=== PATIENT | male | born 1935 | race Caucasian/White ===

== ENCOUNTER 2019-05-16 02:05 | Outpatient (CLI) | payer MEDICARE, OTHER | END 2019-05-16 02:06 | disposition short-term general hospital (02) | LOC: EMS 02:05 | PROVIDERS: ATTEND Surgery | DX: R07.9 Chest pain, unspecified (principal); R42 Dizziness and giddiness; R61 Generalized hyperhidrosis | CPT/HCPCS: A0425; A0427 ==

== ENCOUNTER 2020-11-02 22:22 | Outpatient (CLI) | payer MEDICARE, OTHER | END 2020-11-02 22:23 | disposition critical access hospital (66) | LOC: EMS 22:22 | DX: S09.90XA Unspecified injury of head, initial encounter (principal); X58.XXXA Exposure to other specified factors, initial encounter; Y93.E5 Activity, floor mopping and cleaning; Y92.009 Unspecified place in unspecified non-institutional (private) residence as the place of occurrence of the external cause | CPT/HCPCS: A0425; A0429 ==

== ENCOUNTER 2020-11-02 22:44 | Emergency (ER) | payer MEDICARE, OTHER ==
--- NOTE | 2020-11-02 22:52 | ED Physician Documentation ---
PD HPI HEAD INJURY - Stated complaint Stated Complaint: GLF/ HEAD INJ - Chief complaint Chief Complaint: Trauma Hd/Nk - History obtained from History obtained from: Patient - History of Present Illness Mechanism of head injury: Fell (he says he slipped on wet floor and fell backward. No LOC. No prior symptoms.) Where head injury occurred: Home Timing - onset: Today Location of injury: Back Quality of pain: Aching Associated symptoms: No: LOC, AMS, Nausea / vomiting Symptoms worsen with: Palpation Contributing factors: No: Anticoagulated, Intoxicated Similar symptoms before: Has not had sx before Recently seen: Not recently seen Review of Systems Constitutional: denies: Fever, Chills Nose: denies: Rhinorrhea / runny nose, Congestion Throat: denies: Sore throat Cardiac: denies: Chest pain / pressure Respiratory: denies: Cough GI: denies: Abdominal Pain Skin: denies: Abrasion (s), Laceration (s) Neurologic: reports: Focal weakness (mild in legs related to MS chronically). denies: Generalized weakness, Numbness PD PAST MEDICAL HISTORY - Past Medical History Cardiovascular: None Respiratory: None Neuro: Multiple sclerosis Endocrine/Autoimmune: None GI: None - Allergies Allergies/Adverse Reactions: Allergies Allergy/AdvReac Type Severity Reaction Status Date / Time No Known Drug Allergies Allergy Verified 11/02/20 22:48 PD ED PE NORMAL - Vitals Vital signs reviewed: Yes - General General: Alert and oriented X 3, No acute distress, Well developed/nourished - HEENT HEENT: PERRL, EOMI, Pharynx benign, Other (back of head with mild tenderness, but no swelling nor deformity.) - Neck Neck: Supple, no meningeal sign, No adenopathy, Other (some tender in neck muscles, but patient says is baseline due to prior surgeries. ) - Cardiac Cardiac: RRR - Respiratory Respiratory: No respiratory distress, Clear bilaterally, Other (no chestwall tenderness) - Abdomen Abdomen: Soft, Non tender - Derm Derm: Normal color, Warm and dry - Extremities Extremities: Normal ROM s pain - Neuro Neuro: Alert and oriented X 3, No motor deficit, No sensory deficit, Normal speech Results - Vitals Vitals: Oxygen O2 Source Room air - Rads (name of study) head CT Radiology: Prelim report reviewed (no acute) cervical CT Radiology: Prelim report reviewed (no acute fractures/changes), See rad report PD MEDICAL DECISION MAKING - ED course Complexity details: reviewed results, considered differential, d/w patient Departure - Departure Disposition: 01 Home, Self Care Clinical Impression: Fall from slip, trip, or stumble Qualifiers: Encounter type: initial encounter Qualified Code(s): W01.0XXA - Fall on same level from slipping, tripping and stumbling without subsequent striking against object, initial encounter Head contusion Qualifiers: Encounter type: initial encounter Contusion of head detail: scalp Qualified Code(s): S00.03XA - Contusion of scalp, initial encounter Neck strain Qualifiers: Encounter type: initial encounter Qualified Code(s): S16.1XXA - Strain of muscle, fascia and tendon at neck level, initial encounter Condition: Stable Record reviewed to determine appropriate education?: Yes Follow-Up: Sheri Samson MD [Primary Care Provider] - Comments: Your head CT and neck CT are normal without any acute abnormalities. You will still be having some headache from the fall on bang. Continue usual medications. Activity as tolerated. Anticipate improvement of the next few days. Discharge Date/Time: 11/03/20 00:57
[2020-11-02] MEDS ORDERED: ACETAMINOPHEN 325 MG TABLET PO STA (23:54)
--- NOTE | 2020-11-03 00:05 | CT Report ---
PROCEDURE: HEAD WO INDICATIONS: fall and struck head; brief confused TECHNIQUE: Noncontrast 4.5 mm thick angled axial sections acquired from the foramen magnum to the vertex. For r adiation dose reduction, the following was used: automated exposure control, adjustment of mA and/or kV according to patient size. COMPARISON: None. FINDINGS: Image quality: Excellent. CSF spaces: Basal cisterns are patent. No extra-axial fluid collections. Ventricles are normal in size and shape. Brain: No midline shift. No intracranial masses or hemorrhage. Love-white matter interface is norm al. Moderate cerebral and cerebellar age-related atrophy and multifocal white matter chronic ischemi c change noted Skull and face: Calvarium and visualized facial bones are intact, without suspicious lesions. Sinuses: Visualized sinuses and mastoids are clear. IMPRESSION: Moderate atrophy and multifocal white matter chronic ischemic change without intracranial hemorrhage or mass effect. Reviewed by: Ramón Mack MD on 11/02/2020 11:03 PM GUILHERME Approved by: Ramón Mack MD on 11/02/2020 11:03 PM GUILHERME Station ID: [id number]
--- NOTE | 2020-11-03 00:12 | CT Report ---
PROCEDURE: CERVICAL SPINE WO INDICATIONS: fall and struck head; neck pain TECHNIQUE: Noncontrast 3 mm thick sections acquired from the skull base to the T4 level. Sagittal and coronal r eformats were then constructed. For radiation dose reduction, the following was used: automated exp osure control, adjustment of mA and/or kV according to patient size. COMPARISON: None. FINDINGS: Image quality: Excellent. Bones: No fractures or dislocations. Visualized superior ribs are intact. Vertebral body height an d alignment is maintained. Normal bone mineralization and craniovertebral relationships present. Ther e is C3-4, C4-5 and C5-6 well-healed interbody fusion with good graft incorporation. Associated anter ior plate and screw hardware present. Disc space narrowing present at C2-3 and C6-7. Moderate right f oraminal stenosis at C3-4, C5-6 and C6-7. Soft tissues: Prevertebral soft tissues are normal in thickness. No paravertebral hematomas. No ap ical pneumothoraces. Soft tissue calcification in the ligamentum nuchae noted. Right proximal ICA melvin nt noted in IMPRESSION: 1. No evidence of fracture or malalignment. 2. Well-healed mid cervical interbody fusion and instrumentation. No evidence of hardware failure or loosening. 3. Incidental right ICA vascular stent Reviewed by: Ramón Mack MD on 11/02/2020 11:10 PM UGILHERME Approved by: Ramón Mack MD on 11/02/2020 11:10 PM AKCHRISTIANO Station ID: [id number]
[2020-11-03 00:45] VITALS: BP 149/74
== END 2020-11-03 00:57 | disposition home or self-care (01) ==
LOC: EDUNIT# → ED 22:44
DX: S00.03XA Contusion of scalp, initial encounter (principal); S16.1XXA Strain of muscle, fascia and tendon at neck level, initial encounter; W01.0XXA Fall on same level from slipping, tripping and stumbling without subsequent striking against object, initial encounter; Y92.009 Unspecified place in unspecified non-institutional (private) residence as the place of occurrence of the external cause
CPT/HCPCS: 36415; 99282; 99284